=== PATIENT | female | born 1980 | race Caucasian/White ===

== ENCOUNTER 2017-12-25 06:23 | Day surgery (SDC) | payer OTHER ==
[~2017-12-25] VITALS: Ht 157.5 cm; Wt 112.7 kg
[~2017-12-25 06:23] MED LIST: METF500T6 PO; RINGERS SOLUTION,LACTATED 1,000 ML IV ONE; TOPI100T37 PO
[2017-12-25] MEDS ORDERED: SUCCINYLCHOLINE CHLORIDE 20 MG/ML 10 ML VIAL IVP ONE (06:24)
[2017-12-25] MEDS ORDERED: EPINEPHrine 1:1,000 [1 MG/ML] AMP SQ ONE (06:24)
[2017-12-25] MEDS ORDERED: PROPOFOL 1% 20 ML VIAL IVP ONE (06:24)
[2017-12-25] MEDS ORDERED: FentaNYL CITRATE-PF 100 MCG/2 ML VIAL IVP ONE (06:24)
[2017-12-25] MEDS ORDERED: OXYMETAZOLINE HCL 0.05% 15 ML NASAL SPRAY NASAL ONE (07:06)
[2017-12-25] MEDS ORDERED: AMPICILLIN SODIUM 1 GM/VIAL ONE (07:13)
[2017-12-25] MEDS ORDERED: SODIUM CHLORIDE 0.9% 100 ML ONE (07:14)
[2017-12-25 07:19] LABS: INR 0.9 (0.9-1.1); PROTHROMBIN TIME 9.7 SEC (9.4-11.6)
[2017-12-25] MEDS ORDERED: KETOROLAC TROMETHAMINE 60 MG/2 ML VIAL IM PRN (09:00)
[2017-12-25] MEDS ORDERED: FentaNYL CITRATE-PF 100 MCG/2 ML VIAL IVP PRN ×2 (09:00)
[2017-12-25] MEDS ORDERED: ONDANSETRON HCL 4 MG/2 ML VIAL IVP PRN (09:00)
[2017-12-25] MEDS ORDERED: KETOROLAC TROMETHAMINE 30 MG/ML VIAL IVP PRN (09:15)
[2017-12-25] MEDS ORDERED: FentaNYL CITRATE-PF 100 MCG/2 ML VIAL ONE (09:48)
[2017-12-25] MEDS ORDERED: MIDAZOLAM HCL 2 MG/2 ML VIAL ONE (09:56)
[2017-12-25] MEDS: FentaNYL CITRATE-PF 100 MCG/2 ML VIAL IVP PRN ×2 (10:02→10:07)
[2017-12-25] MEDS: MIDAZOLAM HCL 2 MG/2 ML VIAL IVP PRN ×2 (10:04→10:10)
== END 2017-12-25 10:55 | disposition home or self-care (01) ==
LOC: SURGERY 06:23
PROVIDERS: ATTEND Dentist General Practice
DX: K05.30 Chronic periodontitis, unspecified (principal); E11.9 Type 2 diabetes mellitus without complications; G40.909 Epilepsy, unspecified, not intractable, without status epilepticus; E66.01 Morbid (severe) obesity due to excess calories; Z79.899 Other long term (current) drug therapy; Z79.01 Long term (current) use of anticoagulants
CPT/HCPCS: 36415; 41899; 71045; 84703; 85610; 85730; 93005; J0171; J0290; J0330; J2250; J2704; J3010; J7050; J7120

== ENCOUNTER → 2024-10-30 | Day surgery (SDC) | payer OTHER, MEDICARE ==
[~2024-10-30] VITALS: Ht 157.5 cm; Wt 103.6 kg
[~2024-10-30] MED LIST changes: +0.9% SODIUM CHLORIDE 10 ML VIAL ONE; +ALPR-707 PO; +AMPICILLIN SODIUM 2 GM/NS 100 ML IV ONE; +ATOR20TA65 PO; +CLOR15TA2 PO; +DEXAMETHASONE SOD PHOS 4 MG/ML VIAL ONE; +FentaNYL CITRATE PF 100 MCG/2 ML VIAL IVP PRN; +HYDROmorphone HCL 2 MG/ML SYRINGE IVP PRN; +LEVE100S7 PO; +MEPERIDINE-PF 25 MG/ML VIAL IVP PRN; +METF-1211 PO; -METF500T6 PO; +ONDANSETRON HCL 4 MG/2 ML VIAL ONE; +OXYGEN THERAPY IH SCH; +PROPOFOL 1% 20 ML VIAL IVP ONE; +SUGAMMADEX SODIUM 200 MG/2 ML VIAL IVP ONE; +TOPI-258 PO; -TOPI100T37 PO; +[UNRECOGNIZED DRUG - CODE] PO
[2024-10-30 07:56] LABS: BASOPHILS % (AUTO) 1.2 % (0.0-2.0); EOSINOPHILS % (AUTO) 0.6 % (1.0-6.0); HEMATOCRIT 40.1 % (36-46); HEMOGLOBIN 13.2 g/dL (12.0-16.0); LYMPHOCYTES # (AUTO) 2.4 K/uL (1.0-4.8); LYMPHOCYTES % (AUTO) 59.1 % (22.0-44.0); MEAN CORPUSCULAR HEMOGLOBIN 26.7 pg (26.0-34.0); MEAN CORPUSCULAR VOLUME 81 fL (80-100); MONOCYTES # (AUTO) 0.4 K/uL (0.1-1.0); NEUTROPHILS # (AUTO) 1.2 K/uL (1.8-7.7); NEUTROPHILS % (AUTO) 30.1 % (40.0-70.0); PLATELET COUNT (AUTO) 206 K/uL (150-450); RED BLOOD CELL COUNT(AUTO) 4.94 MIL/uL (4.00-5.20); RED CELL DISTRIBUTION WIDTH 14.2 % (11.5-14.5); WHITE BLOOD COUNT (AUTO) 4.1 K/uL (4.5-11.0)
[2024-10-30 07:59] LABS: ANION GAP 9 mmol/L (8-16); CALCIUM, TOTAL 9.2 mg/dL (8.8-10.5); CARBON DIOXIDE 25 mmol/L (22-29); CHLORIDE 103 mmol/L (98-107); CREATININE 0.72 mg/dL (0.60-1.30); GLOMERULAR FILTR. RATE CALC > 60 mL/min (>60); GLUCOSE,RANDOM 143 mg/dL (70-110); POTASSIUM 3.1 mmol/L (3.5-5.1); SODIUM SERUM 137 mmol/L (136-145); UREA NITROGEN, BLOOD 10 mg/dL (7-18)
[2024-10-30 08:03] LABS: PROTHROMBIN TIME 10.7 SEC (9.4-11.6)
[2024-10-30 08:04] LABS: ALANINE AMINOTRANSFERASE 93 U/L (12-78); ALBUMIN 3.4 g/dL (3.4-5.0); ALKALINE PHOSPHATASE 145 U/L (46-116); ASPARTATE AMINOTRANSFERASE 117 U/L (15-37); BILIRUBIN,TOTAL 0.3 mg/dL (0.1-1.0)
[2024-10-30] MEDS: RINGERS SOLUTION,LACTATED 1,000 ML IV ONE (08:27)
== END | disposition still patient (30) ==
LOC: SURGERY 06:24
PROVIDERS: ATTEND Dentist General Practice
DX: K02.9 Dental caries, unspecified (principal); K05.30 Chronic periodontitis, unspecified; E11.9 Type 2 diabetes mellitus without complications; G40.909 Epilepsy, unspecified, not intractable, without status epilepticus; Z79.899 Other long term (current) drug therapy; Z98.890 Other specified postprocedural states; Z79.01 Long term (current) use of anticoagulants; Z90.710 Acquired absence of both cervix and uterus; E78.00 Pure hypercholesterolemia, unspecified
CPT/HCPCS: 41899; 71045; 80053; 84703; 85025; 85610; 85730; 36415; 93005; J0290; J2704; J1100; J2405; J7120; J3490